=== PATIENT | female | born 1955 | race American Indian/Alaskan Native ===

== ENCOUNTER 2022-04-05 20:23 | Emergency (ER) | payer MEDICARE ==
[2022-04-06] MEDS ORDERED: LIDOCAINE (1%) 10 MG/1 ML VIAL 20 ML MDV INFILTRATI ONE (00:18)
[2022-04-06] MEDS ORDERED: ACETAMINOPHEN 500 MG TAB PO ONE (00:18)
[2022-04-06] MEDS ORDERED: TETANUS,DIPH,PERTUSS(ACELL) VACCINE 0.5 ML SYRINGE IM ONE (00:18)
--- NOTE | 2022-04-06 00:47 | Cat Scan Report ---
CT HEAD WITHOUT CONTRAST INDICATION / CLINICAL INFORMATION: Head Injury. TECHNIQUE: All CT scans at this location are performed using CT dose reduction for ALARA by means of automated exposure control. COMPARISON: None available. FINDINGS: BRAIN PARENCHYMA: No acute intracranial hemorrhage. No evidence of recent infarct. No mass effect or midline shift. VENTRICULAR SYSTEM/EXTRA-AXIAL SPACES: Ventricles are normal for age. No extra-axial fluid collection . ORBITS: Normal as visualized. SKELETAL SYSTEM/SOFT TISSUES: There is a small right forehead contusion without other acute findings. PARANASAL SINUSES/MASTOID AIR CELLS: No significant abnormality. ADDITIONAL FINDINGS: None. IMPRESSION: 1. No acute intracranial abnormality. 2. Small right forehead contusion. Signer Name: Jose L Shook MD Signed: 04/06/2022 12:43 AM Workstation Name: [id number]
--- NOTE | 2022-04-06 02:42 | Emergency Department Report ---
- General Chief Complaint: Wound/Laceration Stated Complaint: HEAD INJURY Source: patient Mode of arrival: Ambulatory Limitations: No Limitations - History of Present Illness Initial Comments: Patient is a 66-year-old -I[place]ian female with a history of hypertension, wuc-emhxvmo-vzqvphwsd diabetes and chronic osteoarthritis who presents to the ED with complaint of acute onset persistent headache with bleeding frontal scalp laceration wound that she sustained about 6 hours ago after tripping while walking on her backyard, resulting in her hitting her forehead against a tree stump with no loss of consciousness. Patient states that she was walking in the yard when she tripped against an old 2-week and ended up falling face forward and hitting her forehead against it tree stump. Patient states that she is not up-to-date with tetanus vaccinations. Patient denies dizziness, syncope, seizures, neck pain, dental injury, nosebleed, loss of consciousness, nausea and vomiting, back pain, chest pain, shortness of breath, numbness and tingling or weakness of upper and lower extremities bilaterally. -: Sudden, hour(s) (6) Location: scalp (frontal scalp) Place: home Patient Tetanus UTD: No (Given during this visit) Context: accidental, sharp object use Associated Symptoms: pain - Related Data Home Medications Medication Instructions Recorded Confirmed Last Taken Aspirin [Aspirin BABY CHEW TAB] 81 mg PO QDAY 06/24/13 11/10/15 10/31/15 Atorvastatin (Nf) [Lipitor] 10 mg PO DAILY 06/24/13 11/10/15 11/08/15 Olmesartan/Amlodipin/Hcthiazid 1 each PO QDAY 06/24/13 11/10/15 11/10/15 08:15 [Tribenzor 40-5-25 mg] [place]-3 Fatty Acids/Fish Oil [Fish 1 each PO DAILY 06/24/13 11/10/15 11/08/15 Oil] Hydrochlorothiazide [HCTZ] 50 mg PO QDAY 07/22/15 11/10/15 11/08/15 metFORMIN [Glucophage] 1,000 mg PO Q48HR 07/22/15 11/10/15 11/08/15 Previous Rx's Medication Instructions Recorded Last Taken Type Ibuprofen [Motrin] 600 mg PO Q8H PRN #30 tablet 04/06/22 Unknown Rx cephALEXin [Keflex] 500 mg PO Q8HR #30 cap 04/06/22 Unknown Rx Allergies Allergy/AdvReac Type Severity Reaction Status Date / Time Sulfa (Sulfonamide Allergy Hives Verified 12/12/13 07:02 Antibiotics) ED Review of Systems ROS: Stated complaint: HEAD INJURY Other details as noted in HPI Constitutional: denies: chills, fever Eyes: denies: eye pain, eye discharge, vision change ENT: denies: ear pain, throat pain Respiratory: denies: cough, shortness of breath, wheezing Cardiovascular: denies: chest pain, palpitations Endocrine: no symptoms reported Gastrointestinal: denies: abdominal pain, nausea, vomiting, diarrhea Genitourinary: denies: urgency, dysuria, discharge Musculoskeletal: denies: back pain, joint swelling, arthralgia Skin: other (Bleeding frontal scalp laceration). denies: rash, lesions Neurological: headache. denies: weakness, paresthesias Psychiatric: denies: anxiety, depression Hematological/Lymphatic: denies: easy bleeding, easy bruising ED Past Medical Hx - Past Medical History Hx Hypertension: Yes Hx Diabetes: Yes Hx Pulmonary Embolism: No Hx GERD: No Hx Liver Disease: No Hx Renal Disease: No Hx Arthritis: Yes Hx Kidney Stones: No Hx Asthma: No Hx COPD: No Hx Tuberculosis: Yes (POSITIVE SKIN TEST,NEG CXR 1998) Hx HIV: No - Surgical History Hx Cholecystectomy: Yes - Social History Smoking Status: Never Smoker - Medications Home Medications: Home Medications Medication Instructions Recorded Confirmed Last Taken Type Aspirin [Aspirin BABY CHEW TAB] 81 mg PO QDAY 06/24/13 11/10/15 10/31/15 History Atorvastatin (Nf) [Lipitor] 10 mg PO DAILY 06/24/13 11/10/15 11/08/15 History Olmesartan/Amlodipin/Hcthiazid 1 each PO QDAY 06/24/13 11/10/15 11/10/15 08:15 History [Tribenzor 40-5-25 mg] [place]-3 Fatty Acids/Fish Oil [Fish 1 each PO DAILY 06/24/13 11/10/15 11/08/15 History Oil] Hydrochlorothiazide [HCTZ] 50 mg PO QDAY 07/22/15 11/10/15 11/08/15 History metFORMIN [Glucophage] 1,000 mg PO Q48HR 07/22/15 11/10/15 11/08/15 History Ibuprofen [Motrin] 600 mg PO Q8H PRN #30 tablet 04/06/22 Unknown Rx cephALEXin [Keflex] 500 mg PO Q8HR #30 cap 04/06/22 Unknown Rx ED Physical Exam - General Limitations: No Limitations General appearance: alert, in no apparent distress - Head Head exam: Present: other (Bleeding 7 cm laceration on frontal scalp in midline) - Eye Eye exam: Present: normal appearance, PERRL, EOMI Pupils: Present: normal accommodation - ENT ENT exam: Present: normal exam, normal orophraynx, mucous membranes moist, TM's normal bilaterally, normal external ear exam - Neck Neck exam: Present: normal inspection, full ROM. Absent: tenderness - Respiratory Respiratory exam: Present: normal lung sounds bilaterally. Absent: respiratory distress, wheezes, rales, rhonchi, chest wall tenderness, accessory muscle use, decreased breath sounds, prolonged expiratory - Cardiovascular Cardiovascular Exam: Present: regular rate, normal rhythm, normal heart sounds. Absent: systolic murmur, diastolic murmur, rubs, gallop - GI/Abdominal GI/Abdominal exam: Present: soft, normal bowel sounds. Absent: tenderness, guarding, rebound, hyperactive bowel sounds, hypoactive bowel sounds, organomegaly, mass - Extremities Exam Extremities exam: Present: normal inspection, full ROM, normal capillary refill. Absent: tenderness - Back Exam Back exam: Present: normal inspection, full ROM. Absent: tenderness, CVA tenderness (R), CVA tenderness (L), muscle spasm, paraspinal tenderness, vertebral tenderness - Neurological Exam Neurological exam: Present: alert, oriented X3, CN II-XII intact, normal gait, reflexes normal - Psychiatric Psychiatric exam: Present: normal affect, normal mood - Skin Skin exam: Present: warm, dry, normal color, other (Bleeding 7 cm laceration wound on frontal scalp in midline position). Absent: rash ED Course Vital Signs 04/05/22 20:28 Temperature 98.6 F Pulse Rate 82 Respiratory 18 Rate Blood Pressure 147/76 O2 Sat by Pulse 96 Oximetry - Laceration /Wound Repair Anterior Head Wound Location: head (frontal scalp laceration wound ) Wound Length (cm): 7 Wound's Depth, Shape: superficial, linear Wound Explored: contaminated Irrigated w/ Saline (ccs): 400 Betadine Prep?: No Anesthesia: 1% Lidocaine Volume Anesthetic (ccs): 6 Wound Debrided: extensive Wound Repaired With: sutures Suture Size/Type: 5:0, proline Number of Sutures: 18 Layer Closure?: No Sterile Dressing Applied?: Yes Progress: The wound was cleaned extensively with normal saline. 1% lidocaine solution was used as a local anesthetic. When anesthesia was fully achieved, the wound was sutured per protocol using Prolene 5-0 sutures for a total of 18 sutures. The wound was then dressed appropriately. Patient tolerated the procedure well. Patient will discharge home on medications for pain and prophylactic antibiotics and advised to return to the ED immediately if symptoms get worse, otherwise follow-up with her primary care physician in 7 to 10 days for reevaluation. Patient was advised return to the ED or to her primary care physician in 8 to 10 days for suture removal. ED Medical Decision Making - Radiology Data Radiology results: report reviewed, [place] [address] Cat Scan Report Signed Patient: SANDI JULIEN MR#: [id number] : 1955 Acct:[id number] Age/Sex: 66 / F ADM Date: 04/05/22 Loc: ED Attending Dr: Ordering Physician: CASSIE COTTO Date of Service: 04/06/22 Procedure(s): CT head/brain wo con Accession Number(s): [id number] cc: CASSIE COTTO CT HEAD WITHOUT CONTRAST INDICATION / CLINICAL INFORMATION: Head Injury. TECHNIQUE: All CT scans at this location are performed using CT dose reduction for ALARA by means of automated exposure control. COMPARISON: None available. FINDINGS: BRAIN PARENCHYMA: No acute intracranial hemorrhage. No evidence of recent infarct. No mass effect or midline shift. VENTRICULAR SYSTEM/EXTRA-AXIAL SPACES: Ventricles are normal for age. No extra- axial fluid collection. ORBITS: Normal as visualized. SKELETAL SYSTEM/SOFT TISSUES: There is a small right forehead contusion without other acute findings. PARANASAL SINUSES/MASTOID AIR CELLS: No significant abnormality. ADDITIONAL FINDINGS: None. IMPRESSION: 1. No acute intracranial abnormality. 2. Small right forehead contusion. Signer Name: Jose L Shook MD Signed: 04/06/2022 12:43 AM Workstation Name: [id number] Transcribed By: SUHAS Dictated By: Jose L Shook MD Electronically Authenticated By: Jose L Shook MD Signed Date/Time: 04/06/2242 DD/ TD/TT: - Medical Decision Making This is a 66-year-old -[place]ian female with a history of hypertension, ncg-orwvxce-chswxvege diabetes and chronic osteoarthritis who presents to the ED with complaint of acute onset persistent headache with bleeding frontal scalp laceration wound that she sustained about 6 hours ago after tripping while walking on her backyard, resulting in her hitting her forehead against a tree stump with no loss of consciousness. Patient states that she was walking in the yard when she tripped against an old 2-week and ended up falling face forward and hitting her forehead against it tree stump. Patient states that she is not up-to-date with tetanus vaccinations. In the ED, patient is alert and oriented x3 and is not in any distress. Patient was treated for pain in the ED. Head CT scan without contrast showed no acute intracranial abnormalities or hemorrhage. The frontal scalp laceration wound was extensively cleaned with normal saline and lidocaine 1% solution was used as a local anesthetic. When anesthesia was fully achieved, the wound was sutured per protocol using Prolene 5-0 sutures for a total of 18 sutures. The wound was then cleaned and dressed appropriately and the patient tolerated the procedure well. Patient was discharged home on medications for pain as well as prophylactic antibiotics and was advised to follow-up with her primary care physician in 7 to 10 days for reevaluation or return to the ED immediately if her symptoms get worse. Patient was otherwise advised to return to the ED or to her primary care physician in 8 to 10 days for suture removal. - Differential Diagnosis head injury; scalp laceration; scalp contusion Critical care attestation.: If time is entered above; I have spent that time in minutes in the direct care of this critically ill patient, excluding procedure time. ED Disposition Clinical Impression: Contusion of scalp Qualifiers: Encounter type: initial encounter Qualified Code(s): S00.03XA - Contusion of scalp, initial encounter Laceration of scalp Qualifiers: Encounter type: initial encounter Qualified Code(s): S01.01XA - Laceration without foreign body of scalp, initial encounter Head injury, acute, without loss of consciousness Qualifiers: Encounter type: initial encounter Qualified Code(s): S09.90XA - Unspecified injury of head, initial encounter Disposition: HOME / SELF CARE / HOMELESS Is pt being admited?: No Does the pt Need Aspirin: No Condition: Stable Instructions: Wound Infection, Odeo-no-Dita, Facial or Scalp Contusion, [id number], Laceration Care, Adult, [id number], Sutured Wound Care, [id number] Additional Instructions: The head CT scan without contrast showed no acute intracranial abnormalities or hemorrhage. Therefore take medication as needed for pain, drink plenty of fluids and follow-up with your primary care physician in 7 to 10 days for reevaluation. Return to the ED immediately if symptoms get worse. Otherwise return to the ED with your primary care physician in 8 to 10 days for suture removal. Prescriptions: cephALEXin [Keflex] 500 mg PO Q8HR #30 cap Ibuprofen [Motrin] 600 mg PO Q8H PRN #30 tablet PRN Reason: Pain Referrals: [facility] [Provider Group] - 7-10 days Time of Disposition: 02:50 Print Language: SAUDI ARABIAN
[2022-04-06 02:59] VITALS: BP 135/61
== END 2022-04-06 04:22 | disposition home or self-care (01) ==
LOC: ED 20:23
DX: S01.01XA Laceration without foreign body of scalp, initial encounter (principal); S09.90XA Unspecified injury of head, initial encounter; I10 Essential (primary) hypertension; Y99.8 Other external cause status; E11.9 Type 2 diabetes mellitus without complications; X58.XXXA Exposure to other specified factors, initial encounter; Y93.89 Activity, other specified; Y92.89 Other specified places as the place of occurrence of the external cause; Z88.2 Allergy status to sulfonamides
CPT/HCPCS: 70450; 90471; 90715; 99283

== ENCOUNTER 2022-04-17 09:33 | Emergency (ER) | payer MEDICARE ==
[2022-04-17 09:59] VITALS: BP 135/66
--- NOTE | 2022-04-17 10:05 | Emergency Department Report ---
Suture/Staple Removal - HPI Chief Complaint: Laceration/Recheck/Suture Stated Complaint: REMOVE STITCHES When Sutures or Risa Placed: 11-14 Days Ago Wound Location: head ED Review of Systems ROS: Stated complaint: REMOVE STITCHES Other details as noted in HPI Comment: All other systems reviewed and negative ED Past Medical Hx - Past Medical History Previous Medical History?: Yes Hx Hypertension: Yes Hx Diabetes: Yes Hx Pulmonary Embolism: No Hx GERD: No Hx Liver Disease: No Hx Renal Disease: No Hx Arthritis: Yes Hx Kidney Stones: No Hx Asthma: No Hx COPD: No Hx Tuberculosis: Yes (POSITIVE SKIN TEST,NEG CXR 1998) Hx HIV: No - Surgical History Past Surgical History?: Yes Hx Cholecystectomy: Yes - Family History Family history: no significant - Social History Smoking Status: Never Smoker - Medications Home Medications: Home Medications Medication Instructions Recorded Confirmed Last Taken Type Aspirin [Aspirin BABY CHEW TAB] 81 mg PO QDAY 06/24/13 11/10/15 10/31/15 History Atorvastatin (Nf) [Lipitor] 10 mg PO DAILY 06/24/13 11/10/15 11/08/15 History Olmesartan/Amlodipin/Hcthiazid 1 each PO QDAY 06/24/13 11/10/15 11/10/15 08:15 History [Tribenzor 40-5-25 mg] [place]-3 Fatty Acids/Fish Oil [Fish 1 each PO DAILY 06/24/13 11/10/15 11/08/15 History Oil] Hydrochlorothiazide [HCTZ] 50 mg PO QDAY 07/22/15 11/10/15 11/08/15 History metFORMIN [Glucophage] 1,000 mg PO Q48HR 07/22/15 11/10/15 11/08/15 History Ibuprofen [Motrin] 600 mg PO Q8H PRN #30 tablet 04/06/22 Unknown Rx cephALEXin [Keflex] 500 mg PO Q8HR #30 cap 04/06/22 Unknown Rx Suture Removal Exam - Exam General: Vital signs noted. No distress. Alert and acting appropriately. Wound: No Pathologic Erythema, No Tenderness, No Drainage, No Pus, No Wound Dehiscence Other Systems: All other systems reviewed and are unremarkable. ED Course Vital Signs 04/17/22 09:57 Temperature 98.7 F Pulse Rate 69 Respiratory 20 Rate Blood Pressure 135/66 [Right] O2 Sat by Pulse 97 Oximetry ED Recheck MDM - Core Measures Measure Exclusions: not indicated - Differential Diagnosis Suture/Staple Removal - Medical Decision Making sutures removed without difficulty educated on wound care dc home with dc plan of care pt verbalizes understanding of plan of care Vital Signs 04/17/22 09:57 Temperature 98.7 F Pulse Rate 69 Respiratory 20 Rate Blood Pressure 135/66 [Right] O2 Sat by Pulse 97 Oximetry Critical care attestation.: If time is entered above; I have spent that time in minutes in the direct care of this critically ill patient, excluding procedure time. ED Disposition Clinical Impression: Visit for suture removal Disposition: 01 HOME / SELF CARE / HOMELESS Is pt being admited?: No Does the pt Need Aspirin: No Condition: Stable Instructions: Wound Closure Removal, Care After Additional Instructions: keep wound clean and dry neosporin starting in AM Time of Disposition: 10:18
== END 2022-04-17 10:54 | disposition home or self-care (01) ==
LOC: ED 09:33
DX: S01.91XD Laceration without foreign body of unspecified part of head, subsequent encounter (principal); X58.XXXD Exposure to other specified factors, subsequent encounter; I10 Essential (primary) hypertension; E11.9 Type 2 diabetes mellitus without complications